=== PATIENT | male | born 1985 | race Two or more races ===

== ENCOUNTER 2021-09-25 01:14 | Inpatient (IN) | payer OTHER | END 2021-10-05 15:59 | disposition home or self-care (01) | DRG 392 | LOC: ER 01:14 → MEDI 10:06 | PROVIDERS: ADMIT Internal Medicine | PROC: BW21ZZZ Computerized Tomography (CT Scan) of Abdomen and Pelvis (ICD-10-PCS; principal; 2021-09-25) | PROC: 02HV33Z Insertion of Infusion Device into Superior Vena Cava, Percutaneous Approach (ICD-10-PCS; 2021-09-25) | PROC: BW21YZZ Computerized Tomography (CT Scan) of Abdomen and Pelvis using Other Contrast (ICD-10-PCS; 2021-09-29) | DX: K57.20 Diverticulitis of large intestine with perforation and abscess without bleeding (principal); E86.0 Dehydration; M10.9 Gout, unspecified; Z20.822 Contact with and (suspected) exposure to COVID-19 ==

== ENCOUNTER 2021-10-19 07:35 | Outpatient (CLI) | payer OTHER ==
[~2021-10-19 07:35] MED LIST: AMOX-CLAV 875-1 EAC1 PO; INTESTINEX680 M1 PO
== END 2021-10-19 07:42 | disposition home or self-care (01) ==
LOC: LAB 07:35
PROVIDERS: ATTEND Internal Medicine
DX: K57.20 Diverticulitis of large intestine with perforation and abscess without bleeding (principal); K57.32 Diverticulitis of large intestine without perforation or abscess without bleeding; E11.9 Type 2 diabetes mellitus without complications; E78.2 Mixed hyperlipidemia; E70.39 Other specified albinism; E55.9 Vitamin D deficiency, unspecified; N39.0 Urinary tract infection, site not specified